=== PATIENT | male | born 1935 | race Hispanic/Latino ===

== ENCOUNTER → 2019-10-10 | Outpatient (CLI) | payer MEDICARE ==
--- NOTE | 2019-10-10 12:46 | Diagnostic Imaging Report ---
EXAM: Abdomen Radiograph 1 View(s) INDICATION: ^[id number] ^[id number] ^CALCULUS OF KIDNEY COMPARISON: None FINDINGS: The bowel gas pattern is nonspecific. Moderate formed stool within the colon. No abnormal soft tissue calcification to suggest a renal calculus is identified. Surgical clips/material external to the patient projecting over the mid abdomen and pelvis. Moderate lumbar spine degenerative change. No acute osseous abnormality. IMPRESSION: No acute radiographic abnormality. Signed by: Todd Fairbanks MD on 10/10/2019 12:44 PM
== END ==
LOC: RAD 11:56
PROVIDERS: ATTEND Urology
DX: N20.0 Calculus of kidney (principal)
CPT/HCPCS: 74018

== ENCOUNTER → 2020-07-15 | Outpatient (CLI) | payer MEDICARE | LOC: RAD 10:28 | PROVIDERS: ATTEND Urology | DX: N20.0 Calculus of kidney (principal) | CPT/HCPCS: 74018 ==

== ENCOUNTER → 2021-03-30 | Outpatient (CLI) | payer MEDICARE | LOC: RAD 11:01 | PROVIDERS: ATTEND Urology | DX: R35.1 Nocturia (principal) | CPT/HCPCS: 74018 ==